=== PATIENT | female | born 1985 | race Caucasian/White ===

== ENCOUNTER 2017-01-09 21:38 | Inpatient (IN) | payer SELFPAY ==
[~2017-01-09] VITALS: Ht 170.2 cm; Wt 73.0 kg
--- OUTSIDE RECORDS SUMMARY | ~2017-01-09 | XMS ---
Demographics + + + | Address | [address] [place] [address] | | | [place] [address] | + + + | Preferred Language | Unknown | + + + | Marital Status | Unknown | + + + | Yazidism Affiliation | Unknown | + + + | Race | Unknown | + + + | Ethnic Group | Unknown | + + + Author + + + | Author | [facility] | + + + | Organization | [facility] | + + + | Address | [address] | | | [place] [address] | + + + | Phone | | + + + Care Team Providers + + + + | Care Stretching Machine Tender Frame Name | Role | Phone | + + + + Unavailable | Unavailable | + + + + PROBLEMS +---------+ + + +--------+ + + | Type | Condition | ICD9-CM | JSQ25-AN | Onset | Condition | SNOMED | | | | Code | Code | Dates | Status | Code | +---------+ + + +--------+ + + | Problem | Encounter | Z34.90 | | | Active | [id number] | | | for | | | | | | | | supervisio | | | | | | | | n of | | | | | | | | normal | | | | | | | | | | | | | | +---------+ + + +--------+ + + ALLERGIES Unknown Allergies SOCIAL HISTORY No smoking Hx information available PLAN OF CARE VITAL SIGNS MEDICATIONS Unknown Medications RESULTS No Results PROCEDURES No Known procedures IMMUNIZATIONS No Known Immunizations"
[~2017-01-09 21:38] MED LIST: PRENATAL + DHA1 EAC1 PO
--- NOTE | 2017-01-10 01:22 | PR ---
[facility] [address] [place], [place] [address] Signed Progress Notes IP Datetime Report Generated by CPN: 01/10/2017 01:22 PROGRESS NOTES: [id number] Impression: Normal progression of labor Procedures: Sterile Speculum Exam; Epidural Placement Informed Consent Obtain: Vaginal Delivery; Risks, Benefits and Alternatives Discussed VITAL SIGNS: [id number] Vital Signs: Reviewed EXAM: [id number] Dilatation: 10.0 Effacement: 100 Station: 1 Uterine Contractions: every two to three minutes MEMBRANES: [id number] Membrane Status: Intact Comments: patient is breathing through contractions. Epidural helping but not completely. Fetus A: [id number] FHR Baseline: 120's Variability: Moderate 6-25bpm Accelerations: 15X15 Decelerations: None FHR Category: Category I Presentation: Vertex Comments on Fetus A: reactive Fetus B: [id number] Signing Physician: Ariana Simmons MD CC: *Electronically Signed* 01/10/17 0122 ARIANA SIMMONS MD PATIENT NAME: NAGA SOTO PROGRESS NOTE DATE OF : 83 PHYSICIAN: ARIANA SIMMONS MD RPT #: [id number] REPORT IS CONFIDENTIAL AND NOT TO BE RELEASED WITHOUT AUTHORIZATION
--- NOTE | 2017-01-11 07:23 | PR ---
[facility] [address] [facility] [place], [place] [address] Signed PP Progress Notes Datetime Report Generated by CPN: 01/11/2017 07:23 SUBJECTIVE: [id number] Pain: Within normal limits Nausea/Vomiting: Denies Vital Signs: [id number] Vital Signs: Reviewed; Within Normal Limits EXAM: [id number] Abdomen/Uterus: Normal Lochia: Normal Extremities: Normal IMPRESSION/PLAN/PROCEDURES: [id number] Impression: Normal progression Plan: Discharge Procedures: None Progress Notes: Doing well, wants to go home. Signing Physician: Rocio Nagel MD CC: *Electronically Signed* 01/11/17722 ROCIO NAGEL MD PATIENT NAME: NAGA SOTO PROGRESS NOTE DATE OF : 83 PHYSICIAN: ROCIO NAGEL MD RPT #: [id number] REPORT IS CONFIDENTIAL AND NOT TO BE RELEASED WITHOUT AUTHORIZATION
== END 2017-01-11 09:45 | disposition home or self-care (01) | DRG 775 ==
LOC: FBCO 21:38 → FBC 21:56
PROVIDERS: ADMIT Obstetrics & Gynecology
PROC: 10E0XZZ Delivery of Products of Conception, External Approach (ICD-10-PCS; principal; 2017-01-10)
PROC: 00HU33Z Insertion of Infusion Device into Spinal Canal, Percutaneous Approach (ICD-10-PCS; 2017-01-10)
PROC: 3E0R3CZ (ICD-10-PCS; 2017-01-10)
DX: O77.0 Labor and delivery complicated by meconium in amniotic fluid (principal); O69.81X0 Labor and delivery complicated by cord around neck, without compression, not applicable or unspecified; O70.0 First degree perineal laceration during delivery; Z3A.39 39 weeks gestation of pregnancy; Z37.0 Single live birth
CPT/HCPCS: 01960; 85027; J2590; J7120

== ENCOUNTER 2018-10-30 05:05 | Inpatient (IN) | payer SELFPAY ==
[~2018-10-30] VITALS: Ht 170.2 cm; Wt 75.0 kg
--- NOTE | 2018-10-30 08:12 | PR ---
[facility] [address] [facility] [place], [place] [address] Signed Progress Notes IP Datetime Report Generated by CPN: 10/30/2018 08:12 PROGRESS NOTES: [id number] Impression: Normal progression of labor Procedures: Artificial ROM Plan: Continue present management; Anticipate Vaginal Delivery VITAL SIGNS: [id number] Vital Signs: Reviewed; Within Normal Limits EXAM: [id number] Dilatation: 6.0 Effacement: 75 Station: -3 Uterine Contractions: every 2-5 minutes MEMBRANES: [id number] Membrane Status: Ruptured Amniotic Fluid Color: Clear ROM Note: AROM without difficulty Comments: Comfortable with Epidural Fetus A: [id number] FHR Baseline: 130 Variability: Moderate 6-25bpm Accelerations: 15X15 Presentation: Vertex Fetus B: [id number] Signing Physician: Rocio Nagel MD Copies: ~ *Electronically Signed* 10/30/18811 ROCIO NAGEL MD PATIENT NAME: NAGA SOTO PROGRESS NOTE DATE OF : 83 PHYSICIAN: ROCIO NAGEL MD RPT #: [id number] REPORT IS CONFIDENTIAL AND NOT TO BE RELEASED WITHOUT AUTHORIZATION
--- NOTE | 2018-10-31 09:57 | PR ---
[facility] [address] [facility] [place] [address] Signed PP Progress Notes Datetime Report Generated by CPN: 10/31/2018 09:57 SUBJECTIVE: [id number] Pain: Within normal limits Nausea/Vomiting: Denies Vital Signs: [id number] Vital Signs: Reviewed; Within Normal Limits Notable Details: PP Hgb/Hct = 12.5/38.0 EXAM: [id number] Abdomen/Uterus: Normal Lochia: Normal Extremities: Normal IMPRESSION/PLAN/PROCEDURES: [id number] Impression: Normal progression Plan: Discharge Procedures: None Progress Notes: Doing well, without complalint, wants to go home today Signing Physician: Rocio Nagel MD Copies: ~ *Electronically Signed* 10/31/18 0957 ROCIO NAGEL MD PATIENT NAME: NAGA SOTO PROGRESS NOTE DATE OF : 83 PHYSICIAN: ROCIO NAGEL MD RPT #: [id number] REPORT IS CONFIDENTIAL AND NOT TO BE RELEASED WITHOUT AUTHORIZATION
== END 2018-10-31 12:10 | disposition home or self-care (01) | DRG 806 ==
LOC: FBCO 05:05 → FBC 05:35
PROVIDERS: ADMIT General Practice
PROC: 10E0XZZ Delivery of Products of Conception, External Approach (ICD-10-PCS; principal; 2018-10-30)
PROC: 10907ZC Drainage of Amniotic Fluid, Therapeutic from Products of Conception, Via Natural or Artificial Opening (ICD-10-PCS; 2018-10-30)
PROC: 00HU33Z Insertion of Infusion Device into Spinal Canal, Percutaneous Approach (ICD-10-PCS; 2018-10-30)
PROC: 3E0R3BZ Introduction of Anesthetic Agent into Spinal Canal, Percutaneous Approach (ICD-10-PCS; 2018-10-30)
DX: O69.81X0 Labor and delivery complicated by cord around neck, without compression, not applicable or unspecified (principal); O99.324 Drug use complicating childbirth; Z37.0 Single live birth; Z3A.38 38 weeks gestation of pregnancy; O69.82X0 Labor and delivery complicated by other cord entanglement, without compression, not applicable or unspecified; F12.90 Cannabis use, unspecified, uncomplicated; O28.0 Abnormal hematological finding on antenatal screening of mother
CPT/HCPCS: 01960; 36415; 85027; J2590; J2795; J7120

== ENCOUNTER 2022-01-25 03:17 | Inpatient (IN) | payer OTHER ==
[~2022-01-25] VITALS: Ht 170.2 cm; Wt 68.0 kg
--- NOTE | 2022-01-25 04:36 | PR ---
[facility] [address] [facility] [place], [place] [address] Signed Progress Notes IP Datetime Report Generated by CPN: 01/25/2022 04:36 PROGRESS NOTES: [id number] Impression: Normal Progression of Labor Plan: Continue Present Management; Anesthesia Consult Other Plans: Patient requesting Epidural VITAL SIGNS: I3018021 Vital Signs: Reviewed; Within Normal Limits EXAM: [id number] Dilatation: 5.0 Effacement: 80 Station: 0 Contractions: every 5-8 minutes MEMBRANES: [id number] Membranes Status: Intact Comments: Tolerating contractions well, labs drawn and pending. IV fluids infusing for Epidural. FETUS A: [id number] FHR Baseline: 135 Variability: Moderate 6-25bpm Accelerations: 15X15 Presentation: Vertex FETUS B: [id number] Signing Physician: Rocio Nagel MD Copies: ~ *Electronically Signed* 01/25/22 0436 ROCIO NAGEL MD PATIENT NAME: NAGA SOTO PROGRESS NOTE DATE OF : 83 PHYSICIAN: ROCIO NAGEL MD RPT #: [id number] REPORT IS CONFIDENTIAL AND NOT TO BE RELEASED WITHOUT AUTHORIZATION
--- NOTE | 2022-01-25 07:01 | PR ---
[facility] [address] [facility] [place], [place] [address] Signed Progress Notes IP Datetime Report Generated by CPN: 01/25/2022 07:01 PROGRESS NOTES: [id number] Impression: Normal Progression of Labor Procedures: Artificial ROM Plan: Continue Present Management; Anticipate Vaginal Delivery Other Plans: Patient requesting Epidural VITAL SIGNS: [id number] Vital Signs: Reviewed; Within Normal Limits EXAM: [id number] Dilatation: 5.0 Effacement: 80 Station: 0 Contractions: every 5-8 minutes MEMBRANES: [id number] Membranes Status: Ruptured Comments: Comfortable with Epidural FETUS A: [id number] FHR Baseline: 135 Variability: Moderate 6-25bpm Accelerations: 15X15 Presentation: Vertex FETUS B: [id number] Signing Physician: Rocio Nagel MD Copies: ~ *Electronically Signed* 01/25/22 07 ROCIO NAGEL MD PATIENT NAME: NAGA SOTO PROGRESS NOTE DATE OF : 83 PHYSICIAN: ROCIO NAGEL MD RPT #: [id number] REPORT IS CONFIDENTIAL AND NOT TO BE RELEASED WITHOUT AUTHORIZATION
--- NOTE | 2022-01-25 12:07 | PR ---
[facility] [address] [facility] [place], [place] [address] Signed Progress Notes IP Datetime Report Generated by CPN: 01/25/2022 12:07 PROGRESS NOTES: [id number] Impression: Arrest of Dilatation/Descent Procedures: Intrauterine Pressure Catheter; Scalp Electrode Plan: Augmentation Other Plans: Patient requesting Epidural VITAL SIGNS: [id number] Vital Signs: Reviewed; Within Normal Limits EXAM: I0259258 Dilatation: 7.0 Effacement: 80 Station: -1 Contractions: every 5-8 minutes MEMBRANES: [id number] Membranes Status: Ruptured Comments: Minimal change and contracitons not picking up well. Will start Pitocin augmentation - discussed with patient FETUS A: [id number] FHR Baseline: 135 Variability: Moderate 6-25bpm Accelerations: 15X15 Presentation: Vertex FETUS B: [id number] Signing Physician: Rocio Nagel MD Copies: ~ *Electronically Signed* 01/25/22 1207 ROCIO NAGEL MD PATIENT NAME: NAGA SOTO PROGRESS NOTE DATE OF : 83 PHYSICIAN: ROCIO NAGEL MD RPT #: [id number] REPORT IS CONFIDENTIAL AND NOT TO BE RELEASED WITHOUT AUTHORIZATION
--- NOTE | 2022-01-26 09:56 | PR ---
[facility] [address] [facility] [place], [place] [address] Signed PP Progress Notes Datetime Report Generated by CPN: 01/26/2022 09:55 SUBJECTIVE: [id number] Pain: Within Normal Limits Nausea/Vomiting: Denies Vital Signs: [id number] Vital Signs: Reviewed; Within Normal Limits Notable Details: PP Hgb/Hct = 10.1/30.7 EXAM: Ongoing Abdomen/Uterus: Normal Lochia: Normal Extremities: Normal IMPRESSION/PLAN/PROCEDURES: [id number] Impression: Normal Progression Plan: Continue Present Management Procedures: None Progress Notes: Doing well, without complaint, wants to go home, but baby staying due to no care and unknown GBS status. Plan home tomorrow morning. Signing Physician: Rocio Nagel MD Copies: ~ *Electronically Signed* 01/26/22 0955 ROCIO NAGEL MD PATIENT NAME: NAGA SOTO PROGRESS NOTE DATE OF : 83 PHYSICIAN: ROCIO NAGEL MD RPT #: [id number] REPORT IS CONFIDENTIAL AND NOT TO BE RELEASED WITHOUT AUTHORIZATION
--- NOTE | 2022-01-27 07:13 | PR ---
[facility] [address] [facility] [place] [address] Signed PP Progress Notes Datetime Report Generated by CPN: 01/27/2022 07:13 SUBJECTIVE: [id number] Pain: Within Normal Limits Nausea/Vomiting: Denies Vital Signs: [id number] Vital Signs: Reviewed; Within Normal Limits Notable Details: PP Hgb/Hct = 10.1/30.7 EXAM: Met Abdomen/Uterus: Normal Lochia: Normal Extremities: Normal IMPRESSION/PLAN/PROCEDURES: [id number] Impression: Normal Progression Plan: Discharge Procedures: None Progress Notes: Doing well, ready to go home. Signing Physician: Rocio Nagel MD Copies: ~ *Electronically Signed* 01/27/22 07 ROCIO NAGEL MD PATIENT NAME: NAGA SOTO PROGRESS NOTE DATE OF : 83 PHYSICIAN: ROCIO NAGEL MD RPT #: [id number] REPORT IS CONFIDENTIAL AND NOT TO BE RELEASED WITHOUT AUTHORIZATION
--- NOTE | 2022-01-28 18:57 | PATH ---
[facility] [address] [place], [place] [address] Signed SPECIMEN(S): A PLACENTA SPECIMEN SOURCE: A. PLACENTA CLINICAL HISTORY: Mother's age: 37. OB history: G6, P5, A0 (spontaneous). Gestational age: 40.5. score: 8/9. Rh negative. GBS unknown. Specific issues of concern: No care. FINAL PATHOLOGIC DIAGNOSIS: Placenta, delivery type unspecified: - 492-gram placenta; weight is between 25th and 50th percentile for gestational age of 40.5 weeks. - Mature third trimester villous morphology with mildly increased syncytial knotting. - Perivillous and perivascular fibrin deposits are present. - Dystrophic calcifications. - Four infarcts are present, measuring up to 2.7 cm in greatest dimension and involving less than 10% of the placenta. - Negative for villitis. - Three-vessel umbilical cord with marginal insertion; negative for acute funisitis. - membrane with marginal insertion; negative for acute chorioamnionitis. SDL:dks:C2NR MICROSCOPIC EXAMINATION: Histologic sections of all submitted blocks are examined by light microscopy. These findings, together with the gross examination, support the pathologic diagnosis. GROSS DESCRIPTION: The specimen, labeled "Sydney Reynolds, placenta," is received in formalin and consists of a mosley discoid placenta with the following parameters: Umbilical cord: Insertion marginal, measurement 33.4 x 1.0cm; trivascular. Cord coiling index (per 10 cm): Four. Lesions: Not grossly identified. Membranes: Insertion site: Marginal, pink-dahl, and translucent. Rupture site cannot be grossly assessed. Fragmented. Other: Not grossly identified. Chorionic Plate: Normal radiating vascular pattern, blue-purple, and shiny. Lesions: Not grossly identified. Other: Not grossly identified. PATIENT NAME: SYDNEY REYNOLDS PATHOLOGY DATE OF : 83 REPORT #: [id number] PHYSICIAN: FINN PATHOLOGY PCP: ROCIO NAGEL MD REPORT IS CONFIDENTIAL AND NOT TO BE RELEASED WITHOUT AUTHORIZATION [facility] [address] [place], [place] [address] Signed Maternal Surface: Normal cotyledons, intact. Lesions: Not grossly identified. Measurement: 19.6 x 17.4 x 2.5 cm. Weight (trimmed): 492 grams. Cut Surface: Maroon and spongy. Lesions: Four white and red-dahl laminated areas of consolidation that measure up to 2.7 cm in greatest dimension and involve less than 10% of the placenta parenchyma. Basal plate fibrin is 0.1 cm in thickness. Other Findings: Not grossly identified. Cassette Summary: (A1) membranes and umbilical cord (A2-A3) areas of consolidation (A4) placenta parenchyma FB (under the direct supervision of a pathologist) The Gross Description was prepared using a voice recognition system. The report was reviewed for accuracy; however, sound-alike word errors, addition and/or deletions may occur. If there is any question about this report, please contact Client Services. PERFORMING LABORATORY: The technical component was performed by [facility], [address] [place] [id number] (CLIA# [id number]). Professional interpretation was performed by [facility], [address] [place] [id number] (CLIA#: [id number]). Diagnostician: Corry Renae MD Pathologist Electronically Signed 01/28/2022 Copies: ~ PATIENT NAME: SYDNEY REYNOLDS PATHOLOGY DATE OF : 83 REPORT #: [id number] PHYSICIAN: FINN DU PCP: ROCIO NAGEL MD REPORT IS CONFIDENTIAL AND NOT TO BE RELEASED WITHOUT AUTHORIZATION
== END 2022-01-27 12:30 | disposition home or self-care (01) | DRG 807 ==
LOC: FBCO 03:17 → FBC 04:11
PROVIDERS: ADMIT General Practice; ATTEND General Practice
PROC: 10E0XZZ Delivery of Products of Conception, External Approach (ICD-10-PCS; principal; 2022-01-25)
PROC: 10907ZC Drainage of Amniotic Fluid, Therapeutic from Products of Conception, Via Natural or Artificial Opening (ICD-10-PCS; 2022-01-25)
PROC: 3E0R3BZ Introduction of Anesthetic Agent into Spinal Canal, Percutaneous Approach (ICD-10-PCS; 2022-01-25)
PROC: 00HU33Z Insertion of Infusion Device into Spinal Canal, Percutaneous Approach (ICD-10-PCS; 2022-01-25)
PROC: 10H07YZ Insertion of Other Device into Products of Conception, Via Natural or Artificial Opening (ICD-10-PCS; 2022-01-25)
DX: O48.0 Post-term pregnancy (principal); Z37.0 Single live birth; O69.1XX0 Labor and delivery complicated by cord around neck, with compression, not applicable or unspecified; Z20.822 Contact with and (suspected) exposure to COVID-19; Z79.899 Other long term (current) drug therapy; Z98.890 Other specified postprocedural states; Z3A.40 40 weeks gestation of pregnancy
CPT/HCPCS: 01960; 36415; 85025; 85027; 86762; 86780; 86803; 86850; 86900; 86901; 87088; 87340; 87536; 88307; A9270; J2590; J2795; J3010; J7121; U0003